=== PATIENT | female | born 1970 | race Caucasian/White ===

== ENCOUNTER 2025-02-15 08:31 | Outpatient (CLI) | payer BC ==
[2025-02-15] MEDS ORDERED: GADOTERATE MEGLUMINE 7.5 MMOL/15 ML VIAL IV ONE (10:52)
--- NOTE | 2025-02-15 11:34 | RADIOLOGY REPORT ---
PROCEDURE: MR MRI C SPINE Indication: MIGRAINE, UNSP, NOT INTRACTABLE, WITHOUT STATUS MIGRAINOSUS COMPARISON: None TECHNIQUE: Multiplanar multisequence images of the the cervical spine are obtained with and without contrast.. FINDINGS: The cervical vertebral body heights are maintained. Moderate multilevel disc space narrowing. Reversal normal cervical spine curvature. No prevertebral edema. Atlantooccipital, atlantoaxial articulations intact. No abnormal marrow enhancement. No abnormal cervical cord enhancement. C2-3: Small disc osteophyte complex. No spinal canal, neural foraminal stenosis. C3-4: Left paracentral disc osteophyte complex. No spinal canal stenosis. Severe left and moderate right neural foraminal stenosis. C4-5: Small disc osteophyte complex. No spinal canal stenosis. Mild bilateral neural foraminal stenosis. C5-6: Broad-based disc osteophyte complex narrowing ventral and dorsal CSF spaces. Thecal sac measures 9 mm AP. Mild spinal canal stenosis. Moderate left and [id number] right neural foraminal stenosis. C6-7: Disc osteophyte complex narrowing ventral and dorsal CSF spaces. Thecal measures 10 mm AP. No spinal canal stenosis. No neural foraminal stenosis. C7-T1: No spinal canal, neural foraminal stenosis. IMPRESSION: Moderate cervical degenerative disc disease. Mild spinal canal stenosis C5-6. Multilevel neural foraminal stenosis as described most pronounced at C3-4 No abnormal cervical cord enhancement.
--- NOTE | 2025-02-15 12:33 | RADIOLOGY REPORT ---
PROCEDURE: MRI OF THE BRAIN WITHOUT CONTRAST. CLINICAL INDICATION: MIGRAINE, UNSP, NOT INTRACTABLE, WITHOUT STATUS MIGRAINOSUS TECHNIQUE: Multiplanar, multi sequence MRI of the brain was performed without and with intravenous contrast. COMPARISON: None FINDINGS: The signal characteristics of the brain parenchyma is within normal limits. There are no areas of restricted diffusion to suggest acute infarct. No evidence of space occupying mass lesion, extra-axial collections or hemorrhage is noted. The ventricles, sulci and basal cisterns are intact. There is no signal abnormality in the posterior fossa. There is mucosal thickening in the right maxillary sinus. The paranasal sinuses and mastoid air cells are otherwise well pneumatized. The orbits and nasopharynx are intact. The osseous structures are intact. The vessels of the skull base demonstrate signal void consistent with patency. No pathologic intracranial enhancement. IMPRESSION: 1. No acute intracranial abnormality.
== END 2025-02-15 23:59 | disposition home or self-care (01) ==
LOC: MRI 08:31
PROVIDERS: ATTEND Nurse Practitioner Family
DX: G43.909 Migraine, unspecified, not intractable, without status migrainosus (principal); R20.2 Paresthesia of skin; R29.898 Other symptoms and signs involving the musculoskeletal system; R56.1 Post traumatic seizures; R53.1 Weakness; M25.78 Osteophyte, vertebrae
CPT/HCPCS: 70553; 72156; A9575